=== PATIENT | male | born 1945 ===

== ENCOUNTER 2018-01-05 05:45 | Day surgery (SDC) | payer MEDICARE, MEDICAID ==
[2017-12-23 09:32] VITALS: BMI 32.8
[2018-01-05] MEDS ORDERED: Phenylephrine 2.5% Opht Soln OD SCH (06:00)
[2018-01-05] MEDS ORDERED: Lactated Ringer's 500 ML IV ONE (06:00)
[2018-01-05] MEDS ORDERED: Flurbiprofen 0.03% Opht SOLN OD SCH (06:00)
[2018-01-05] MEDS ORDERED: Cyclopentolate 1% Opth (2 ml) OD SCH (06:00)
[2018-01-05] MEDS ORDERED: Tropicamide 1% Opht SOLUTION OD SCH (06:00)
[2018-01-05] MEDS ORDERED: Ciprofloxacin 0.3% OPTH SOLN OD SCH (06:00)
[2018-01-05] MEDS ORDERED: Lactated Ringer's 1,000 ML IV ONE (06:28)
[2018-01-05] MEDS ORDERED: Tobramycin/Dexamethasone (Tobradex) Opth Sol (2.5 ml) ONE (07:24)
[2018-01-05] MEDS: Povidone Iodine Ophthalmic 5% Soln ONE ×2 (08:08→08:47)
[2018-01-05] MEDS: Tetracaine 0.5% Ophth (OR ONLY) ONE ×4 (08:08→09:12)
[2018-01-05] MEDS: Hyaluronidase Human, Recombi 150 U/ML VIAL ONE ×2 (08:09→08:51)
[2018-01-05] MEDS: Carbachol 0.01% IO ONE ×2 (08:09→09:09)
[2018-01-05] MEDS: Lidocaine 2% Inj (20ml) ONE ×2 (08:09→08:51)
[2018-01-05] MEDS: Chondroitin/Hyaluronate Opth Syringe KIT (0.55 ml-0.5 ml) IO ONE ×2 (08:09→08:58)
[2018-01-05] MEDS: Tobramycin/Dexamethasone OPHT OINT ONE ×2 (08:10→09:12)
[2018-01-05] MEDS ORDERED: Propofol 10 mg/ml Inj (20 ML) ONE (08:11)
[2018-01-05 12:02] VITALS: BP 138/69; PULSE 57; RESP 18; TEMP 97.7; O2SAT 95
--- NOTE | 2018-01-11 07:46 | OP ---
DATE: 01/05/2018 PREOPERATIVE DIAGNOSIS: Cataract, right eye. POSTOPERATIVE DIAGNOSIS: Cataract, right eye. OPERATIVE PROCEDURE: Cataract extraction with implant, right eye. ANESTHESIA TYPE: Local, standby. COMPLICATIONS: None. DESCRIPTION OF PROCEDURE: Local anesthesia was achieved using a mixture of 1% lidocaine and Amphadase. The patient was then prepped and draped in the usual sterile fashion for ophthalmic surgery. Betadine drops were placed into the eye. A lid speculum was used and a sideport incision was made using a 15 degree blade. Viscoelastic was used to fill the anterior chamber and a 2.7 millimeter slit blade was used to create a surgical opening. Additional viscoelastic was placed into the eye and a capsulorrhexis was performed. Hydrodissection and delineation were then carried out. Phacoemulsification of the nucleus was performed with ease and cortical cleanup was achieved without difficulty. The capsular bag was refilled using viscoelastic and a posterior chamber lens was inserted through the existing wound and placed into the capsular bag and easily centered. All viscoelastic was then aspirated from the eye and Miochol was instilled for good symmetric pupillary constriction. The sideport wound was hydrated as necessary and a good watertight closure was observed at the conclusion of the case. A TobraDex soaked collagen shield was then placed over the eye. The lid speculum was removed. TobraDex ointment was placed onto the eye and a patch and shield were placed. The patient tolerated the procedure well. James Grey MD
== END 2018-01-05 10:45 | disposition home or self-care (01) ==
LOC: C.SDS 05:45
PROVIDERS: ATTEND Ophthalmology
DX: H26.9 Unspecified cataract (principal); M19.90 Unspecified osteoarthritis, unspecified site; I12.9 Hypertensive chronic kidney disease with stage 1 through stage 4 chronic kidney disease, or unspecified chronic kidney disease; N18.3 Chronic kidney disease, stage 3 (moderate); E66.9 Obesity, unspecified; Z68.32 Body mass index [BMI] 32.0-32.9, adult; E79.0 Hyperuricemia without signs of inflammatory arthritis and tophaceous disease; Z79.899 Other long term (current) drug therapy
CPT/HCPCS: 66984; J2704; J3470; J7120; V2632